=== PATIENT | male | born 1980 | race Caucasian/White ===

== ENCOUNTER 2022-12-24 01:56 | Observation (INO) ==
[2022-12-24] MEDS ORDERED: XYLOCAINE 1%/SOD BICARB 20 ML VIAL INFIL ONE (02:46)
--- NOTE | 2022-12-24 02:56 | Emergency Department Note ---
ED Provider Note History of Present Illness Chief Complaint: Fall Stated Complaint: FELL AND HIT BACK OF HEAD Time Seen by Provider: 12/24/22 02:04 Source: patient Mode of arrival: ambulatory Limitations: no limitations This patient is a 42-year-old male who presents to the emergency department for evaluation of a fall and head injury. Patient states that he lost his balance while in his garage and fell, striking the back of his head. He states that he recently had some toes on his left foot amputated due to a prior trauma. Since the amputation he has had problems with his balance. He does admit to drinking some alcohol tonight. He denies any loss of consciousness fall. Tetanus vaccine up-to-date. He reports mild pain in the head. Home Medications Medication Instructions Recorded Confirmed Type cholecalciferol (vitamin D3) 50 2,000 unit PO DAILY 12/24/22 12/24/22 History mcg (2,000 unit) capsule (Vitamin D3) duloxetine 30 mg capsule,delayed 30 mg PO DAILY 12/24/22 12/24/22 History release gabapentin 600 mg tablet 600 mg PO TID 12/24/22 12/24/22 History sildenafil (pulm.hypertension) 20 20 mg PO DAILY 12/24/22 12/24/22 History mg tablet Allergies Allergy/AdvReac Type Severity Reaction Status Date / Time No Known Allergies Allergy Verified 12/24/22 09:28 Past Med/Surg History Medical History Amputation of toe of left foot Depression History of traumatic brain injury HTN (hypertension) Peripheral neuropathy Surgical History S/P transmetatarsal amputation of foot Social History Smoking Status: Current some day smoker Second Hand Exposure: No; Do You Dip or Chew Tobacco: Yes; Tobacco Cessation Education Requested by Patient: No Hx Alcohol Use: Yes Hx Substance Use: No Preferred Language: Nepali Communication Ability: Effective Grant Coordinator Required: No Beliefs That Will Affect Care: None Current Living Situation: Alone Other Information That Helps Us Care for You: No Feels Safe at Home: No Is there a partner from a previous relationship who is making you feel unsafe now?: No Any Concerns about Your Family Situation: No Would You Like to Speak to Someone About Your Situation: No Safety Concerns: Feels Safe At This Time Assistive Devices: None Physical Exam Vital Signs Vital Signs - 24 hr 12/24/22 07:56 12/24/22 07:56 12/24/22 08:06 Pulse Rate 74 66 Pulse Rate [Finger] 72 Respiratory Rate 18 Respiratory Effort / Characteristics Non-Labored Respiratory Depth Normal Blood Pressure [Left Arm] 137/93 Blood Pressure Mean [Left Arm] 107 Pulse Oximetry 98 99 Oxygen Delivery Method Room Air Room Air VITALS: Vitals are noted on the nurse's note and reviewed by myself. GENERAL: This is a 42-year-old male, in no acute distress, well-developed well- nourished. SKIN: There is a 5 cm linear laceration to the posterior scalp. HEAD: Normocephalic atraumatic. EARS: External auditory canals clear, tympanic membranes pearly narayanan without erythema or effusion bilaterally. No hemotympanum. EYES: Pupils equal round and reactive to light and accommodation. Extraocular movements intact. NECK: Supple without nuchal rigidity. Cervical spine is nontender. HEART: Regular rate and rhythm without murmurs gallops or rubs. LUNGS: Clear to auscultation bilaterally without wheezes, rales or rhonchi. NEURO: Patient was alert and oriented to person place and time. Procedures Laceration Scalp laceration: Site: scalp Size (cm): 5 Description: linear Depth: simple, single layer Local Anesthetic: lidocaine 1% Amount of anesthesia used (mL): 8 Pre-repair: wound explored, irrigated extensively and deep structures intact Skin layer closed with: other (chrissy) Number of sutures: 9 Course Administered Medications Acetaminophen (Acetaminophen 325 Mg Tab) 650 mg PO Q4H PRN PRN Reason: pain/fever Stop: 01/23/23 12:29 Last Admin: 12/25/22 05:52 Dose: 650 mg Documented By: Admin: 12/24/22 20:41 Dose: 650 mg Documented By: CIERRA Gabapentin (Gabapentin 600 Mg Tab) 600 mg PO Q8H [facility] Stop: 12/25/22 22:01 Last Admin: 12/25/22 05:52 Dose: 600 mg Documented By: CIERRA Nicotine (Nicotine 21 Mg/24 Hr Tdsy) 21 mg TD QAM [facility] Stop: 01/23/23 12:29 Last Admin: 12/24/22 13:46 Dose: 21 mg Documented By: SUGEY Discontinued Medications Gabapentin (Gabapentin 600 Mg Tab) 600 mg PO Q6H [facility] Stop: 12/24/22 22:01 Last Admin: 12/24/22 22:04 Dose: 600 mg Documented By: Admin: 12/24/22 16:00 Dose: 600 mg Documented By: SUGEY Gabapentin (Gabapentin 600 Mg Tab) 1,200 mg PO NOW ONE Stop: 12/24/22 12:31 Last Admin: 12/24/22 13:49 Dose: 1,200 mg Documented By: SUGEY Thiamine HCl 100 mg/ Folic (Acid 1 mg/ Sodium Chloride) 1,001.2 mls @ 500 mls/hr IV .Q2H1M STA; Protocol Stop: 12/24/22 11:20 Last Infusion: 12/24/22 12:51 Dose: 0 mls/hr Documented By: Admin: 12/24/22 10:00 Dose: 500 mls/hr Documented By: DINORA Lidocaine HCl (Xylocaine 1%/Sod Bicarb 20 Ml Vial) 20 ml INFIL NOW ONE Stop: 12/24/22 02:47 Last Admin: 12/24/22 04:25 Dose: 20 ml Documented By: STONE Multivitamins/Minerals (Cerovite Adv Formula Tab) 1 tab PO ONE STA Stop: 12/24/22 09:21 Last Admin: 12/24/22 10:00 Dose: 1 tab Documented By: DINORA Medical Decision Making Differential Diagnosis Concussion, contusion, fracture, subdural hematoma, epidural hematoma, intraparenchymal hemorrhage, as well as other pathologies. Home Medications was personally reviewed by me Laboratory Data 12/24/22 07:55 12/24/22 07:55 Lab Results 12/24/22 12/24/22 12/24/22 Range/Units 07:55 07:55 07:55 WBC 5.83 (4.8-10.8) K/ul RBC 5.18 (4.70-6.10) M/uL Hgb 17.0 (14.0-18.0) g/dl Hct 47.1 (42.0-52.0) % MCV 90.9 (80.0-100.0) fL MCH 32.8 (25.0-34.0) pg MCHC 36.1 H (32.0-36.0) g/dL RDW Std Deviation 39.9 (36.4-46.3) fL RDW Coeff of Jasmin 12.0 (11.5-14.5) % Plt Count 336 (130-400) K/uL MPV 8.7 L (9.4-12.4) fL Immature Gran % (Auto) 0.3 % Neut % (Auto) 62.4 % Lymph % (Auto) 29.0 % Mcmullen % (Auto) 6.9 % Eos % (Auto) 0.5 % Baso % (Auto) 0.9 % Neut # (Auto) 3.64 (1.40-6.50) K/uL Lymph # (Auto) 1.69 (1.2-3.4) K/uL Mcmullen # (Auto) 0.40 (0.11-0.59) K/uL Eos # (Auto) 0.03 (0-0.50) K/uL Baso # (Auto) 0.05 (0-0.2) K/uL Immature Gran # (Auto) 0.02 (0.01-0.20) K/uL PT 10.2 (9.0-12.0) Seconds INR 0.9 (0.9-1.1) APTT 26.2 (21.0-31.0) Seconds PTT Ratio 0.9 Sodium 141 (136-145) mmol/L Potassium 4.3 (3.5-5.1) mmol/L Chloride 106 (98-107) mmol/L Carbon Dioxide 27 (21-32) mmol/L Anion Gap 8 (3-11) BUN 9 (6-23) mg/dl Creatinine 0.85 (0.6-1.4) mg/dl Est Cr Clr Drug Dosing 115.5 ml/min Est GFR ( Amer) 123.7 ml/min Est GFR (Non-Af Amer) 106.7 ml/min BUN/Creatinine Ratio 10.6 (10-20) Glucose 92 (70-99(Fasting)) mg/dl Calcium 9.9 (8.6-10.3) mg/dl Total Bilirubin 0.5 (0.2-1.0) mg/dl AST 20 (13-39) U/L ALT 22 (7-52) U/L Alkaline Phosphatase 86 (34-104) U/L Total Protein 8.5 H (6.0-8.3) gm/dl Albumin 5.1 H (3.4-5.0) gm/dl Globulin 3.4 (2.5-4.0) gm/dl Albumin/Globulin Ratio 1.5 (0.9-2) Ethyl Alcohol mg/dL (<10.0) mg/dl 12/24/22 Range/Units 07:55 WBC (4.8-10.8) K/ul RBC (4.70-6.10) M/uL Hgb (14.0-18.0) g/dl Hct (42.0-52.0) % MCV (80.0-100.0) fL MCH (25.0-34.0) pg MCHC (32.0-36.0) g/dL RDW Std Deviation (36.4-46.3) fL RDW Coeff of Jasmin (11.5-14.5) % Plt Count (130-400) K/uL MPV (9.4-12.4) fL Immature Gran % (Auto) % Neut % (Auto) % Lymph % (Auto) % Mcmullen % (Auto) % Eos % (Auto) % Baso % (Auto) % Neut # (Auto) (1.40-6.50) K/uL Lymph # (Auto) (1.2-3.4) K/uL Mcmullen # (Auto) (0.11-0.59) K/uL Eos # (Auto) (0-0.50) K/uL Baso # (Auto) (0-0.2) K/uL Immature Gran # (Auto) (0.01-0.20) K/uL PT (9.0-12.0) Seconds INR (0.9-1.1) APTT (21.0-31.0) Seconds PTT Ratio Sodium (136-145) mmol/L Potassium (3.5-5.1) mmol/L Chloride (98-107) mmol/L Carbon Dioxide (21-32) mmol/L Anion Gap (3-11) BUN (6-23) mg/dl Creatinine (0.6-1.4) mg/dl Est Cr Clr Drug Dosing ml/min Est GFR ( Amer) ml/min Est GFR (Non-Af Amer) ml/min BUN/Creatinine Ratio (10-20) Glucose (70-99(Fasting)) mg/dl Calcium (8.6-10.3) mg/dl Total Bilirubin (0.2-1.0) mg/dl AST (13-39) U/L ALT (7-52) U/L Alkaline Phosphatase (34-104) U/L Total Protein (6.0-8.3) gm/dl Albumin (3.4-5.0) gm/dl Globulin (2.5-4.0) gm/dl Albumin/Globulin Ratio (0.9-2) Ethyl Alcohol mg/dL 130.6 H (<10.0) mg/dl Imaging Data Radiologist's Impression: Cervical Spine CT 12/24/22 02:45 CT SCAN OF THE CERVICAL SPINE CLINICAL HISTORY: Fall. Head injury. COMPARISON STUDY: No priors. TECHNIQUE: CT scan of the cervical spine is performed from the skull base to the upper thoracic spine. Images are reviewed in the axial, sagittal, and coronal planes. IV contrast was not administered for this examination. A dose lowering technique was utilized adhering to the principles of ALARA. FINDINGS: Skeletal structures: The skeletal structures are well mineralized. There is no evidence of fracture or subluxation involving the cervical spine. Vertebral body height and alignment are maintained. Tiny anterior osteophytes are seen throughout. The odontoid process and lateral masses are intact. The atlantoaxial articulation is preserved. The spinous processes appear intact. Postsurgical change is noted in the right clavicle. Intervertebral discs: There is mild multilevel degenerative disc space narrowing, greatest at C6-C7. Central canal: Posterior disc osteophyte complexes at C5-C6 and C6-C7 may contribute to acquired compromise of the central canal. Soft tissues: The prevertebral and paraspinous soft tissues are within normal limits. Calvarium: The visualized calvarium at the skull base appears intact. Brain parenchyma: Partially visualized brain parenchyma at the skull base is within normal limits. Sinuses and mastoids: The visualized paranasal sinuses are clear. The mastoid air cells are well pneumatized. Lung apices: Clear as visualized. IMPRESSION: There is no evidence of fracture or subluxation involving the cervical spine. ACT 112: Negative or not required by law. Electronically signed by: Rico López M.D. 12/24/2022 7:[address] 12/24/22 02:45 CT SCAN OF THE BRAIN WITHOUT IV CONTRAST CLINICAL HISTORY: Fall. Head injury. COMPARISON STUDY: No priors. TECHNIQUE: Unenhanced axial CT scan of the brain is performed from the vertex to the skull base. A dose lowering technique was utilized adhering to the principles of ALARA. FINDINGS: Brain parenchyma: There is trace subdural hemorrhage along the right frontal convexity and along the midline falx. No parenchymal hematoma is identified. There is no mass effect or evidence of acute territorial ischemia by CT criteria. Narayanan-white matter differentiation is preserved. No extra-axial fluid collection is seen. Ventricles, sulci, cisterns: Normal in configuration. Intracranial vasculature: The visualized intracranial vasculature at the skull base is normal in appearance. Calvarium: There is no depressed calvarial fracture. Soft tissues: There is posterior scalp contusion. Sinuses and mastoids: The visualized paranasal sinuses are clear. The mastoid air cells are well pneumatized. Orbits: The bony orbits are grossly intact. IMPRESSION: 1. There is trace subdural hemorrhage along the right frontal convexity and along the midline falx. 2. No additional foci of hemorrhage are identified. There is no mass effect or evidence of acute territorial ischemia by CT criteria. 3. Posterior scalp injury. No depressed calvarial fracture is identified. ACT 112: Negative or not required by law. Electronically signed by: Rico López M.D. 12/24/2022 7:22 AM Head Trauma GCS Score: 15 MDM Narrative This patient is a 42-year-old male who presents to the emergency department for evaluation of a head injury. Patient sustained a mechanical fall. He does admit to drinking some alcohol tonight. CT of the head/C-spine were performed. Scalp laceration was repaired as noted in the procedure section. Patient tolerated this well. Wound care instructions were discussed with the patient. At the time of shift change, the CT scan had not been read by radiology. At this time, patient's care was signed out to Mikie Cook PA-C pending CT read and patient disposition. Impression Closed head injury, Laceration of scalp Discharge Plan Visit Data Chief Complaint: Fall Stated Complaint: FELL AND HIT BACK OF HEAD ED Provider: Beth Lowe ED Midlevel Provider: Bamat,Mikie W Discharge Problem: Closed head injury, Laceration of scalp Patient Disposition: Admitted As Inpatient Condition: Good Discharge Instructions Interventions: ED Discharge Assessment Last Done: 12/24/22 15:03
--- NOTE | 2022-12-24 07:24 | CT Scan Report ---
CT SCAN OF THE BRAIN WITHOUT IV CONTRAST CLINICAL HISTORY: Fall. Head injury. COMPARISON STUDY: No priors. TECHNIQUE: Unenhanced axial CT scan of the brain is performed from the vertex to the skull base. A d ose lowering technique was utilized adhering to the principles of ALARA. FINDINGS: Brain parenchyma: There is trace subdural hemorrhage along the right frontal convexity and along the midline falx. No parenchymal hematoma is identified. There is no mass effect or evidence of acute ter ritorial ischemia by CT criteria. Narayanan-white matter differentiation is preserved. No extra-axial flui d collection is seen. Ventricles, sulci, cisterns: Normal in configuration. Intracranial vasculature: The visualized intracranial vasculature at the skull base is normal in appe arance. Calvarium: There is no depressed calvarial fracture. Soft tissues: There is posterior scalp contusion. Sinuses and mastoids: The visualized paranasal sinuses are clear. The mastoid air cells are well pneu matized. Orbits: The bony orbits are grossly intact. IMPRESSION: 1. There is trace subdural hemorrhage along the right frontal convexity and along the midline falx. 2. No additional foci of hemorrhage are identified. There is no mass effect or evidence of acute terr itorial ischemia by CT criteria. 3. Posterior scalp injury. No depressed calvarial fracture is identified. ACT 112: Negative or not required by law. Electronically signed by: Rico López M.D. 12/24/2022 7:22 AM
--- NOTE | 2022-12-24 07:52 | CT Scan Report ---
CT SCAN OF THE CERVICAL SPINE CLINICAL HISTORY: Fall. Head injury. COMPARISON STUDY: No priors. TECHNIQUE: CT scan of the cervical spine is performed from the skull base to the upper thoracic spine . Images are reviewed in the axial, sagittal, and coronal planes. IV contrast was not administered fo r this examination. A dose lowering technique was utilized adhering to the principles of ALARA. FINDINGS: Skeletal structures: The skeletal structures are well mineralized. There is no evidence of fracture o r subluxation involving the cervical spine. Vertebral body height and alignment are maintained. Tiny anterior osteophytes are seen throughout. The odontoid process and lateral masses are intact. The at lantoaxial articulation is preserved. The spinous processes appear intact. Postsurgical change is not ed in the right clavicle. Intervertebral discs: There is mild multilevel degenerative disc space narrowing, greatest at C6-C7. Central canal: Posterior disc osteophyte complexes at C5-C6 and C6-C7 may contribute to acquired comp romise of the central canal. Soft tissues: The prevertebral and paraspinous soft tissues are within normal limits. Calvarium: The visualized calvarium at the skull base appears intact. Brain parenchyma: Partially visualized brain parenchyma at the skull base is within normal limits. Sinuses and mastoids: The visualized paranasal sinuses are clear. The mastoid air cells are well pneu matized. Lung apices: Clear as visualized. IMPRESSION: There is no evidence of fracture or subluxation involving the cervical spine. ACT 112: Negative or not required by law. Electronically signed by: Rico López M.D. 12/24/2022 7:50 AM
--- NOTE | 2022-12-24 07:59 | Emergency Department Note ---
ED Visit Note Patient case signed out to me at 0700 hours on 12/24/2022 by Charmaine Drummond PA-C. Patient was pending CT read by radiology of the head and C-spine. Patient resting comfortably in the examination room. Vital signs stable. Patient presents status post ground-level fall with an occipital laceration which was repaired by CALOS Drummond. CT scans resulted and I did inform the patient on the findings. There is a trace subdural hemorrhage. With this finding in the setting of mechanical fall it is felt discussion with trauma center would be reasonable. The patient recently had surgery on his foot with the [facility]. At this time consideration for transfer/discussion of case with [facility] is felt to be the most reasonable destination. I spoke with [facility] ED, Dr. Amaro. We reviewed the case. He will reach out to the neurosurgery specialty service to review the imaging that was sent via [employer] from our radiology department. At 0853 I did receive a phone call back from Dr. Amaro. He indicated that he reviewed the case with Dr. Bonilla (Neurosurgery) that also reviewed the imaging. Repeat head CT at the 6-hour jinny is indicated. Transfer is not felt to be needed at this time. Patient clinically is well-appearing and nontoxic. No neurodeficits. GCS 15. Laboratory studies here reveal no leukocytosis or concerning anemia. Alcohol is detected. We will proceed with medical admission here, repeat head CT and repeat neurological assessment. It was noted that Dr. Bonilla is available for any questions. I reviewed options with the patient. I do believe that medical admission here is reasonable. I did speak to our hospitalist, Dr. Mcallister. He notes he will come evaluate the patient for admission and will order the repeat head CT. He did recommend a banana bag noting the patient's alcohol ingestion and presentation. This was ordered. Please refer to further documentation regarding his stay. GCS: 15. .
[2022-12-24 08:08] LABS: Basophils # (auto) 0.05 K/uL (0-0.2); Basophils % (auto) 0.9 %; Eosinophils # (auto) 0.03 K/uL (0-0.50); Eosinophils % (auto) 0.5 %; Hematocrit (blood only) 47.1 % (42.0-52.0); Immature Granulocytes # (auto) 0.02 K/uL (0.01-0.20); Immature Granulocytes % (auto) 0.3 %; Lymphocytes # (auto) 1.69 K/uL (1.2-3.4); Mean Corpuscular Hemoglobin 32.8 pg (25.0-34.0); Mean Corpuscular Hgb Conc 36.1 g/dL (32.0-36.0); Mean Corpuscular Volume 90.9 fL (80.0-100.0); Mean Platelet Volume 8.7 fL (9.4-12.4); Monocytes % (auto) 6.9 %; Neutrophils # (auto) 3.64 K/uL (1.40-6.50); Neutrophils % (auto) 62.4 %; Platelet Count 336 K/uL (130-400); RDW Standard Deviation 39.9 fL (36.4-46.3); Red Blood Count 5.18 M/uL (4.70-6.10); White Blood Count 5.83 K/ul (4.8-10.8)
[2022-12-24 08:24] LABS: Albumin Globulin Ratio 1.5 (0.9-2); Albumin Level 5.1 gm/dl (3.4-5.0); BUN Creatinine Ratio 10.6 (10-20); Bilirubin,Total 0.5 mg/dl (0.2-1.0); Calcium 9.9 mg/dl (8.6-10.3); Creatinine Clr Calc Pharmacy 115.5 ml/min; Est GFR (African American) 123.7 ml/min; Est GFR (Non-African American) 106.7 ml/min; Globulin 3.4 gm/dl (2.5-4.0); Potassium 4.3 mmol/L (3.5-5.1); Total Protein 8.5 gm/dl (6.0-8.3)
[2022-12-24 08:59] LABS: INR 0.9 (0.9-1.1); Partial Thromboplastin Ratio 0.9; Partial Thromboplastin Time 26.2 Seconds (21.0-31.0); Prothrombin Time 10.2 Seconds (9.0-12.0)
[2022-12-24] MEDS ORDERED: THIAMINE HCL 100 MG, FOLIC ACID 1 MG in SODIUM CHLORIDE 0.9% 1000ML 1,000 ML IV STA (09:20)
[2022-12-24] MEDS ORDERED: CEROVITE ADV FORMULA TAB PO STA (09:20)
--- NOTE | 2022-12-24 10:32 | History & Physical Report ---
Date of Service December 24, 2022 Assessment & Plan (1) Traumatic subdural hemorrhage: (2) Alcoholism: (3) Laceration of scalp: (4) Wound of foot: (5) S/P transmetatarsal amputation of foot: (6) Peripheral neuropathy: (7) Depression: (8) HTN (hypertension): Plan Traumatic SDH with scalp laceration: -CT head: There is trace subdural hemorrhage along the right frontal convexity and along the midline falx. -ER provider did speak to ER doc at [facility] and neurosurgeon (Dr. Bonilla) -- Recommendation: repeat CT head in 6 hours if no worsening then observe overnight (recommendation on [facility]) -pts neuro exam is normal -VSS -will repeat CT head in 6 hours -pt does not take any AC or Aspirin - Occipital scalp laceration repaired with 9 chrissy Alcoholism: -elevated alcohol level - but pt does not have any s/s of intoxication -last drink was 11 pm yesterday -will start pt on alcohol withdrawal protocol with gabapentin load ---- thus will hold his home gabapentin 600mg TID -pt not interested in doing rehab hx of S/p L foot TMA with small foot wound: -no sign of infection -pt does follow up with podiatry for wound care ([facility]) -wound care consult HTN: -bp wnl - per pt he does not take amlodipine - if BP starts to elevate then consider starting amlodipine Peripheral neuropathy/Depression/Tobacco use: -will hold home gabapentin while doing gabapentin ETOH withdrawal protocol -will continue Cymbalta -will do nicotine patch Diet: heart healthy DVT PPx:SCD Code Status:FULL CODE Emergency Contact: sneha Pathak [phone] History of Present Illness Chief Complaint: scalp laceration Primary Care Provider: Annemarie Mcclendon MD Pt is a 42 y/o M with hx of HTN, 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 Per pt around 1am pt was going to the kitchen, tripped and hit his head on a Radiator. Denied any LOC or syncope. Came to the ER for laceration repair and found to have trace SDH. Last alcohol intake was 11 pm yesterday. Per pt he drinks abt 3 beers/day. Denied any hx of alcohol withdrawal or seizure. Currently not interested in doing rehab. At bedside: pt complained of pain where he has chrissy placed (posterior scalp). Denied any n/V, vision problem, dizziness, hallucination, delusion, Cp, SOB. Per pt he does not take his amlodipine for HTN. Allergies Allergy/AdvReac Type Severity Reaction Status Date / Time No Known Allergies Allergy Verified 12/24/22 09:28 Home Medications Medication Instructions Recorded Confirmed Type cholecalciferol (vitamin D3) 50 2,000 unit PO DAILY 12/24/22 12/24/22 History mcg (2,000 unit) capsule (Vitamin D3) duloxetine 30 mg capsule,delayed 30 mg PO DAILY 12/24/22 12/24/22 History release gabapentin 600 mg tablet 600 mg PO TID 12/24/22 12/24/22 History sildenafil (pulm.hypertension) 20 20 mg PO DAILY 12/24/22 12/24/22 History mg tablet Past Med/Surg History Medical History Amputation of toe of left foot Depression History of traumatic brain injury HTN (hypertension) Peripheral neuropathy Surgical History S/P transmetatarsal amputation of foot Social History Smoking Status: Current every day smoker Preferred Language: Uzbek Feels Safe at Home: Yes Review of Systems Review of Systems: At least 10 Review of systems were reviewed and all negative except as indicated in HPI Physical Exam Physical Exam: General:. NAD, well developed, well nourished, average body habitus HEENT:.laceration of the posterior scalp repaired with chrissy, Normocephalic and atraumatic, Normal Conjunctiva, EOMI, Sclera is non-icteric Lungs:. No signs of respiratory distress, CTA, no wheezing or crackles Heart:. Normal S1, S2, no murmur Abdominal:. ND, Soft, NT MSK:.L foot TMA, small wound near the incision, no drainage or erythema Neuro: CN II-XII intact, normal motor strength, and sensation Psych:. AAOx3, normal affect Results & Data Results & Data Vital Signs (Past 12 Hours) Vital Signs Temp Pulse Pulse Resp BP BP Pulse Ox 12/24/22 10:02 64 16 127/88 98 12/24/22 08:06 66 12/24/22 07:56 72 18 137/93 99 12/24/22 07:56 74 98 12/24/22 03:30 84 20 135/88 96 12/24/22 05:46 68 18 117/75 97 12/24/22 01:59 36.6 C 77 18 131/91 98 O2 Del Method 12/24/22 10:02 Room Air 12/24/22 08:06 12/24/22 07:56 Room Air 12/24/22 07:56 Room Air 12/24/22 03:30 Room Air 12/24/22 05:46 Room Air 12/24/22 01:59 Room Air Laboratory Results Short CBC 12/24/22 Range/Units 07:55 WBC 5.83 (4.8-10.8) K/ul Hgb 17.0 (14.0-18.0) g/dl Hct 47.1 (42.0-52.0) % Plt Count 336 (130-400) K/uL BMP 12/24/22 07:55 Sodium 141 Potassium 4.3 Chloride 106 Carbon Dioxide 27 BUN 9 Creatinine 0.85 Glucose 92 Calcium 9.9 Liver Function 12/24/22 Range/Units 07:55 Total Bilirubin 0.5 (0.2-1.0) mg/dl AST 20 (13-39) U/L ALT 22 (7-52) U/L Alkaline Phosphatase 86 (34-104) U/L Albumin 5.1 H (3.4-5.0) gm/dl Diagnostic Findings Cervical Spine CT 12/24/22 02:45 CT SCAN OF THE CERVICAL SPINE CLINICAL HISTORY: Fall. Head injury. COMPARISON STUDY: No priors. TECHNIQUE: CT scan of the cervical spine is performed from the skull base to the upper thoracic spine. Images are reviewed in the axial, sagittal, and coronal planes. IV contrast was not administered for this examination. A dose lowering technique was utilized adhering to the principles of ALARA. FINDINGS: Skeletal structures: The skeletal structures are well mineralized. There is no evidence of fracture or subluxation involving the cervical spine. Vertebral body height and alignment are maintained. Tiny anterior osteophytes are seen throughout. The odontoid process and lateral masses are intact. The atlantoaxial articulation is preserved. The spinous processes appear intact. Postsurgical change is noted in the right clavicle. Intervertebral discs: There is mild multilevel degenerative disc space narrowing, greatest at C6-C7. Central canal: Posterior disc osteophyte complexes at C5-C6 and C6-C7 may contribute to acquired compromise of the central canal. Soft tissues: The prevertebral and paraspinous soft tissues are within normal limits. Calvarium: The visualized calvarium at the skull base appears intact. Brain parenchyma: Partially visualized brain parenchyma at the skull base is within normal limits. Sinuses and mastoids: The visualized paranasal sinuses are clear. The mastoid air cells are well pneumatized. Lung apices: Clear as visualized. IMPRESSION: There is no evidence of fracture or subluxation involving the cervical spine. ACT 112: Negative or not required by law. Electronically signed by: Rico López M.D. 12/24/2022 7:[address] 12/24/22 02:45 CT SCAN OF THE BRAIN WITHOUT IV CONTRAST CLINICAL HISTORY: Fall. Head injury. COMPARISON STUDY: No priors. TECHNIQUE: Unenhanced axial CT scan of the brain is performed from the vertex to the skull base. A dose lowering technique was utilized adhering to the principles of ALARA. FINDINGS: Brain parenchyma: There is trace subdural hemorrhage along the right frontal convexity and along the midline falx. No parenchymal hematoma is identified. There is no mass effect or evidence of acute territorial ischemia by CT criteria. Narayanan-white matter differentiation is preserved. No extra-axial fluid collection is seen. Ventricles, sulci, cisterns: Normal in configuration. Intracranial vasculature: The visualized intracranial vasculature at the skull base is normal in appearance. Calvarium: There is no depressed calvarial fracture. Soft tissues: There is posterior scalp contusion. Sinuses and mastoids: The visualized paranasal sinuses are clear. The mastoid air cells are well pneumatized. Orbits: The bony orbits are grossly intact. IMPRESSION: 1. There is trace subdural hemorrhage along the right frontal convexity and along the midline falx. 2. No additional foci of hemorrhage are identified. There is no mass effect or evidence of acute territorial ischemia by CT criteria. 3. Posterior scalp injury. No depressed calvarial fracture is identified. ACT 112: Negative or not required by law. Electronically signed by: Rico López M.D. 12/24/2022 7:22 AM Code Status & VTE Plan VTE Prophylaxis Plan VTE Prophylaxis will be ordered: Yes
[2022-12-24] MEDS ORDERED: GABAPENTIN 600 MG TAB PO ONE (12:30)
[2022-12-24] MEDS ORDERED: LORazepam 1 MG TAB PO PRN ×3 (12:30)
[2022-12-24] MEDS ORDERED: ONDANSETRON INJ 2 MG/ML 2 ML VIAL IV PRN (12:30)
[2022-12-24] MEDS ORDERED: GABAPENTIN 1200MG ALCOHOL WITHDRAWAL LOAD PO STA (12:30)
[2022-12-24] MEDS ORDERED: Ativan PO Alcohol Withdrawal--Active Protocol PO PRN (12:30)
[2022-12-24] MEDS: NICOTINE 21 MG/24 HR TDSY TD SCH (13:46)
[2022-12-24] MEDS: GABAPENTIN 600 MG TAB PO SCH ×2 (16:00→22:04)
--- NOTE | 2022-12-24 17:32 | CT Scan Report ---
CT SCAN OF THE BRAIN WITHOUT IV CONTRAST CLINICAL HISTORY: Follow-up subdural hemorrhage. COMPARISON STUDY: CT of the brain performed earlier the same day 12/24/2022. TECHNIQUE: Unenhanced axial CT scan of the brain is performed from the vertex to the skull base. A d ose lowering technique was utilized adhering to the principles of ALARA. FINDINGS: Brain parenchyma: Again seen is trace subdural hemorrhage along the right frontal convexity and along the midline falx. No parenchymal hematoma is identified. There is no mass effect or evidence of acut e territorial ischemia by CT criteria. Narayanan-white matter differentiation is preserved. No extra-axial fluid collection is seen. Ventricles, sulci, cisterns: Normal in configuration. Intracranial vasculature: The visualized intracranial vasculature at the skull base is normal in appe arance. Calvarium: There is no depressed calvarial fracture. Soft tissues: There is posterior scalp contusion. Skin clips are in place. Sinuses and mastoids: The visualized paranasal sinuses are clear. The mastoid air cells are well pneu matized. Orbits: The bony orbits are grossly intact. IMPRESSION: 1. There is unchanged appearance of trace subdural hemorrhage along the right frontal convexity and t he midline falx as compared to today's earlier examination. 2. No additional foci of hemorrhage are identified. There is no mass effect or evidence of acute terr itorial ischemia by CT criteria. ACT 112: Negative or not required by law. Electronically signed by: Rico López M.D. 12/24/2022 5:31 PM
[2022-12-24] MEDS: ACETAMINOPHEN 325 MG TAB PO PRN (20:41)
[2022-12-25] MEDS: ACETAMINOPHEN 325 MG TAB PO PRN ×3 (05:52→21:57)
[2022-12-25] MEDS: GABAPENTIN 600 MG TAB PO SCH ×3 (05:52→21:58)
[2022-12-25 07:24] LABS: Basophils # (auto) 0.04 K/uL (0-0.2); Basophils % (auto) 0.7 %; Eosinophils # (auto) 0.09 K/uL (0-0.50); Eosinophils % (auto) 1.7 %; Hematocrit (blood only) 42.7 % (42.0-52.0); Hemoglobin 15.3 g/dl (14.0-18.0); Immature Granulocytes # (auto) 0.02 K/uL (0.01-0.20); Immature Granulocytes % (auto) 0.4 %; Lymphocytes # (auto) 1.77 K/uL (1.2-3.4); Lymphocytes % (auto) 32.8 %; Mean Corpuscular Hemoglobin 32.7 pg (25.0-34.0); Mean Corpuscular Hgb Conc 35.8 g/dL (32.0-36.0); Mean Corpuscular Volume 91.2 fL (80.0-100.0); Mean Platelet Volume 8.5 fL (9.4-12.4); Monocytes # (auto) 0.59 K/uL (0.11-0.59); Monocytes % (auto) 10.9 %; Neutrophils # (auto) 2.89 K/uL (1.40-6.50); Neutrophils % (auto) 53.5 %; Platelet Count 265 K/uL (130-400); RDW Standard Deviation 39.8 fL (36.4-46.3); Red Blood Count 4.68 M/uL (4.70-6.10)
[2022-12-25 07:52] LABS: Albumin Globulin Ratio 1.6 (0.9-2); Albumin Level 4.1 gm/dl (3.4-5.0); BUN Creatinine Ratio 16.7 (10-20); Bilirubin,Total 0.7 mg/dl (0.2-1.0); Calcium 9.4 mg/dl (8.6-10.3); Chol HDL Ratio 2.9 (0-5); Creatinine Clr Calc Pharmacy 109.4 ml/min; Est GFR (African American) 120.8 ml/min; Est GFR (Non-African American) 104.2 ml/min; Globulin 2.6 gm/dl (2.5-4.0); Potassium 3.9 mmol/L (3.5-5.1); Total Protein 6.7 gm/dl (6.0-8.3)
[2022-12-25 08:17] LABS: Estimated Average Glucose 94 mg/dl; Hemoglobin A1C 4.9 % (4.5-5.6)
[2022-12-25] MEDS: CHOLECALCIFEROL 1,000 UNITS 25 MCG TAB PO SCH (08:19)
[2022-12-25] MEDS: THIAMINE HCL 100 MG TAB PO SCH (08:19)
[2022-12-25] MEDS: DULoxetine HCL 30 MG CAP PO SCH (08:19)
[2022-12-25] MEDS: FOLIC ACID 1 MG TAB PO SCH (08:19)
[2022-12-25] MEDS: NICOTINE 21 MG/24 HR TDSY TD SCH (08:20)
--- NOTE | 2022-12-25 12:22 | Hospitalist Progress Note ---
Date of Service December 25, 2022 Assessment & Plan (1) Traumatic subdural hemorrhage: (2) Alcoholism: (3) Laceration of scalp: (4) Wound of foot: (5) S/P transmetatarsal amputation of foot: (6) Peripheral neuropathy: (7) Depression: (8) HTN (hypertension): Plan Traumatic SDH with scalp laceration: due to mechanical fall -CT head: There is trace subdural hemorrhage along the right frontal convexity and along the midline falx. -ER provider did speak to ER doc at [facility] and neurosurgeon (Dr. Bonilla) -- Recommendation: repeat CT head in 6 hours if no worsening then observe overnight. Repeat CT head was stable. No new neuro sxns. -- Occipital scalp laceration repaired with 9 chrissy Alcoholism: -elevated alcohol level - but pt does not have any s/s of intoxication -last drink was 11 pm 2 days back -continue alcohol withdrawal protocol with gabapentin load ---- thus will hold his home gabapentin 600mg TID -pt not interested in doing rehab hx of S/p L foot TMA with small foot wound: -no sign of infection -pt [facility] -wound care consult Peripheral neuropathy/Depression/Tobacco use: -will hold home gabapentin while doing gabapentin ETOH withdrawal protocol -will continue Cymbalta -continue nicotine patch DVT PPx:SCD Dispo: Anticipate discharge later today or tomorrow Admission and Anticipated Discharge Date Admission Date: December 24, 2022 Subjective Patient was seen and examined at bedside. Denies any new issues. He feels fine. Complains of mild headache but no numbness, weakness, tingling or other neurological symptoms. No fever, chills. No chest pain or nausea or vomiting. Denies alcohol withdrawal symptoms Review of Systems Review of Systems: All systems reviewed & are unremarkable except as noted in Subjective Physical Exam Physical Exam: General: Lying comfortably in bed, not in distress, on room air. Laceration of post scalp with chrissy HEENT: EOMI, KANDI, MMM Chest: Clear breath sounds bilaterally, no wheezes or crackles CVS: Regular rate and rhythm, normal heart sounds, no murmur Abdomen: Soft, non tender, not distended, normal bowel sounds Neuro: Awake, alert, oriented, conversing well, non focal Extremities: No cyanosis, clubbing or edema MSK: Left foot transmetatarsal amputation, small wound near the incision- no signs of infection noted Results & Data Results & Data Vital Signs (Past 12 Hours) Vital Signs Temp Pulse Pulse Resp BP Pulse Ox O2 Del Method 12/25/22 11:01 36.6 C 71 18 118/78 95 Room Air 12/25/22 07:47 12/25/22 07:57 Room Air 12/25/22 07:55 36.6 C 59 L 18 113/74 98 Room Air 12/25/22 07:30 72 12/25/22 03:07 36.4 C L 71 16 109/72 96 Room Air O2 Del Method 12/25/22 11:01 12/25/22 07:47 Room Air 12/25/22 07:57 12/25/22 07:55 12/25/22 07:30 12/25/22 03:07 Laboratory Results Short CBC 12/25/22 Range/Units 07:03 WBC 5.40 (4.8-10.8) K/ul Hgb 15.3 (14.0-18.0) g/dl Hct 42.7 (42.0-52.0) % Plt Count 265 (130-400) K/uL BMP 12/25/22 07:03 Sodium 138 Potassium 3.9 Chloride 104 Carbon Dioxide 29 BUN 15 Creatinine 0.90 Glucose 88 Calcium 9.4 Liver Function 12/25/22 Range/Units 07:03 Total Bilirubin 0.7 (0.2-1.0) mg/dl AST 16 (13-39) U/L ALT 17 (7-52) U/L Alkaline Phosphatase 77 (34-104) U/L Albumin 4.1 (3.4-5.0) gm/dl Medications Administered Current Inpatient Medications Acetaminophen (Acetaminophen 325 Mg Tab) 650 mg PO Q4H PRN PRN Reason: pain/fever Stop: 01/23/23 12:29 Last Admin: 12/25/22 05:52 Dose: 650 mg Duloxetine HCl (Duloxetine Hcl 30 Mg Cap) 30 mg PO DAILY [facility] Stop: 01/24/23 08:59 Last Admin: 12/25/22 08:19 Dose: 30 mg Folic Acid (Folic Acid 1 Mg Tab) 1 mg PO QAM ARMANDO Stop: 01/24/23 08:59 Last Admin: 12/25/22 08:19 Dose: 1 mg Gabapentin (Gabapentin 600 Mg Tab) 600 mg PO Q24H [facility] Stop: 12/27/22 22:01 Gabapentin (Gabapentin 600 Mg Tab) 600 mg PO Q12H [facility] Stop: 12/26/22 22:01 Gabapentin (Gabapentin 600 Mg Tab) 600 mg PO Q8H [facility] Stop: 12/25/22 22:01 Last Admin: 12/25/22 05:52 Dose: 600 mg Lorazepam (Lorazepam 1 Mg Tab) 2 mg PO UD PRN; Protocol PRN Reason: EtOH Withdrawal AWSS Score 8,9 Stop: 01/23/23 12:29 Lorazepam (Lorazepam 1 Mg Tab) 3 mg PO ONCE PRN; Protocol PRN Reason: EtOH Withdrawal AWSS Score 10 & above Lorazepam (Lorazepam 1 Mg Tab) 1 mg PO UD PRN; Protocol PRN Reason: EtOH Withdrawal AWSS Score 6,7 Stop: 01/23/23 12:29 Miscellaneous (Remove Nicoderm Patch) 1 each N/A DAILY@[id number] [facility] Stop: 01/24/23 08:58 Last Admin: 12/25/22 08:20 Dose: 1 each Nicotine (Nicotine 21 Mg/24 Hr Tdsy) 21 mg TD QAM [facility] Stop: 01/23/23 12:29 Last Admin: 12/25/22 08:20 Dose: 21 mg Ondansetron HCl (Ondansetron Inj 2 Mg/Ml 2 Ml Vial) 4 mg IV Q6H PRN PRN Reason: Nausea Stop: 01/23/23 12:29 Thiamine HCl (Thiamine Hcl 100 Mg Tab) 100 mg PO QAM [facility] Stop: 01/24/23 08:59 Last Admin: 12/25/22 08:19 Dose: 100 mg Vitamin D (Cholecalciferol 1,000 Units 25 Mcg Tab) 2,000 units PO DAILY [facility] Stop: 01/24/23 08:59 Last Admin: 12/25/22 08:19 Dose: 2,000 units
--- NOTE | 2022-12-25 19:54 | CT Scan Report ---
CT SCAN OF THE BRAIN WITHOUT IV CONTRAST CLINICAL HISTORY: Headache. Follow-up subdural hemorrhage. COMPARISON STUDY: CT scans of the brain dated 12/24/2022. TECHNIQUE: Unenhanced axial CT scan of the brain is performed from the vertex to the skull base. A d ose lowering technique was utilized adhering to the principles of ALARA. FINDINGS: Brain parenchyma: There is trace residual subdural hemorrhage along the midline falx. This appears to have decreased from yesterday. Trace of subdural blood along the right frontal convexity has almost completely resolved. No parenchymal hematoma is identified. There is no mass effect or evidence of ac grayling territorial ischemia by CT criteria. Narayanan-white matter differentiation is preserved. No extra-axi al fluid collection is seen. Ventricles, sulci, cisterns: Normal in configuration. Intracranial vasculature: There is moderate atherosclerotic calcification of the cavernous carotid an d vertebral arteries. Calvarium: There is no depressed calvarial fracture. Soft tissues: There is posterior scalp contusion. Skin clips are in place. Sinuses and mastoids: The visualized paranasal sinuses are clear. The mastoid air cells are well pneu matized. Orbits: The bony orbits are grossly intact. IMPRESSION: 1. There is trace residual subdural hemorrhage along the right frontal convexity and along the midlin e falx. This has decreased from yesterday. 2. No new focus of hemorrhage is identified. There is no mass effect or evidence of acute territorial ischemia by CT criteria. ACT 112: Negative or not required by law. Electronically signed by: Rico López M.D. 12/25/2022 7:52 PM
[2022-12-26 07:19] LABS: Hemoglobin 15.1 g/dl (14.0-18.0); Mean Corpuscular Hemoglobin 32.3 pg (25.0-34.0); Mean Corpuscular Volume 89.7 fL (80.0-100.0); Mean Platelet Volume 8.9 fL (9.4-12.4); Platelet Count 277 K/uL (130-400); RDW Coefficient of Variation 11.9 % (11.5-14.5); RDW Standard Deviation 38.7 fL (36.4-46.3); Red Blood Count 4.68 M/uL (4.70-6.10); White Blood Count 5.72 K/ul (4.8-10.8)
[2022-12-26 07:42] LABS: BUN Creatinine Ratio 13.1 (10-20); Calcium 9.6 mg/dl (8.6-10.3); Creatinine Clr Calc Pharmacy 99.4 ml/min; Est GFR (African American) 107.7 ml/min; Est GFR (Non-African American) 92.9 ml/min; Magnesium 1.8 mg/dl (1.7-2.4); Potassium 4.3 mmol/L (3.5-5.1)
[2022-12-26] MEDS: FOLIC ACID 1 MG TAB PO SCH (08:08)
[2022-12-26] MEDS: CHOLECALCIFEROL 1,000 UNITS 25 MCG TAB PO SCH (08:08)
[2022-12-26] MEDS: NICOTINE 21 MG/24 HR TDSY TD SCH (08:09)
[2022-12-26] MEDS: DULoxetine HCL 30 MG CAP PO SCH (08:09)
[2022-12-26] MEDS: THIAMINE HCL 100 MG TAB PO SCH (08:09)
[2022-12-26] MEDS: ACETAMINOPHEN 325 MG TAB PO PRN (08:13)
[2022-12-26] MEDS ORDERED: GABAPENTIN 600 MG TAB PO SCH (10:00)
--- NOTE | 2022-12-26 12:17 | XRay Report ---
XR ribs LT min 2V w CXR1V CLINICAL HISTORY: Left-sided rib pain following fall. Evaluate for fracture. COMPARISON: None FINDINGS: There is no pneumothorax or pleural effusion. No airspace opacities are present. Cardiac s ize is normal. Mediastinal contours are normal. A right clavicular internal fixation is incidentally noted. There is subtle cortical irregularity of the anterior left 10th and 11th ribs. IMPRESSION: No pneumothorax. Possible acute nondisplaced fractures of the anterior left 10th and 11th ribs. ACT 112: Negative or not required by law. Electronically signed by: Bharathi Guzman M.D. 12/26/2022 12:16 PM
--- NOTE | 2022-12-26 13:58 | Discharge Summary ---
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 Per pt around 1am pt was going to the kitchen, tripped and hit his head on a Radiator. Denied any LOC or syncope. Came to the ER for laceration repair and found to have trace SDH. Last alcohol intake was 11 pm yesterday. Per pt he drinks abt 3 beers/day. Denied any hx of alcohol withdrawal or seizure. Currently not interested in do ing rehab. At bedside: pt complained of pain where he has chrissy placed (posterior scalp). Denied any n/V, vision problem, dizziness, hallucination, delusion, Cp, SOB. Per pt he does not take his amlodipine for HTN. Admission Exam Per Admitting Provider General:.NAD, well developed, well nourished, average body habitus HEENT:.laceration of the posterior scalp repaired with chrissy,Normocephalic and atraumatic, Normal Conjunctiva, EOMI, Sclera is non-icteric Lungs:.No signs of respiratory distress, CTA, no wheezing or crackles Heart:.Normal S1, S2, no murmur Abdominal:.ND, Soft, NT MSK:.L foot TMA, small wound near the incision, no drainage or erythema Neuro: CN II-XII intact, normal motor strength, and sensation Psych:.AAOx3, normal affect Principal Diagnosis Fall with traumatic SDH Discharge Exam General: Lying comfortably in bed, not in distress, on room air. Laceration of post scalp with chrissy HEENT: EOMI, KANDI, MMM Chest: Clear breath sounds bilaterally, no wheezes or crackles CVS: Regular rate and rhythm, normal heart sounds, no murmur Abdomen: Soft, non tender, not distended, normal bowel sounds Neuro: Awake, alert, oriented, conversing well, non focal Extremities: No cyanosis, clubbing or edema MSK: Left foot transmetatarsal amputation, no active wound or infection noted Discharge Data Allergies Allergy/AdvReac Type Severity Reaction Status Date / Time No Known Allergies Allergy Verified 12/24/22 09:28 Consultations 06/17/23 09:20 ED Decision to Admit Stat Ordered Studies 12/24/22 02:45 CT cervical spine wo con Stat CT head/brain wo con Stat 12/24/22 15:00 CT head/brain wo con Routine 12/25/22 16:59 CT head/brain wo con Routine Laboratory Results WBC 5.72 K/ul (4.8-10.8) 12/26/22 06:41 RBC 4.68 M/uL (4.70-6.10) L 12/26/22 06:41 Hgb 15.1 g/dl (14.0-18.0) 12/26/22 06:41 Hct 42.0 % (42.0-52.0) 12/26/22 06:41 MCV 89.7 fL (80.0-100.0) 12/26/22 06:41 MCH 32.3 pg (25.0-34.0) 12/26/22 06:41 MCHC 36.0 g/dL (32.0-36.0) 12/26/22 06:41 RDW Std Deviation 38.7 fL (36.4-46.3) 12/26/22 06:41 RDW Coeff of Jasmin 11.9 % (11.5-14.5) 12/26/22 06:41 Plt Count 277 K/uL (130-400) 12/26/22 06:41 MPV 8.9 fL (9.4-12.4) L 12/26/22 06:41 Immature Gran % (Auto) 0.4 % 12/25/22 07:03 Neut % (Auto) 53.5 % 12/25/22 07:03 Lymph % (Auto) 32.8 % 12/25/22 07:03 [place] % (Auto) 10.9 % 12/25/22 07:03 Eos % (Auto) 1.7 % 12/25/22 07:03 Baso % (Auto) 0.7 % 12/25/22 07:03 Neut # (Auto) 2.89 K/uL (1.40-6.50) 12/25/22 07:03 Lymph # (Auto) 1.77 K/uL (1.2-3.4) 12/25/22 07:03 [place] # (Auto) 0.59 K/uL (0.11-0.59) 12/25/22 07:03 Eos # (Auto) 0.09 K/uL (0-0.50) 12/25/22 07:03 Baso # (Auto) 0.04 K/uL (0-0.2) 12/25/22 07:03 Immature Gran # (Auto) 0.02 K/uL (0.01-0.20) 12/25/22 07:03 PT 10.2 Seconds (9.0-12.0) 12/24/22 07:55 INR 0.9 (0.9-1.1) 12/24/22 07:55 APTT 26.2 Seconds (21.0-31.0) 12/24/22 07:55 PTT Ratio 0.9 12/24/22 07:55 Sodium 140 mmol/L (136-145) 12/26/22 06:41 Potassium 4.3 mmol/L (3.5-5.1) 12/26/22 06:41 Chloride 104 mmol/L (98-107) 12/26/22 06:41 Carbon Dioxide 31 mmol/L (21-32) 12/26/22 06:41 Anion Gap 5 (3-11) 12/26/22 06:41 BUN 13 mg/dl (6-23) 12/26/22 06:41 Creatinine 0.99 mg/dl (0.6-1.4) 12/26/22 06:41 Est Cr Clr Drug Dosing 99.4 ml/min 12/26/22 06:41 Est GFR ( Amer) 107.7 ml/min 12/26/22 06:41 Est GFR (Non-Af Amer) 92.9 ml/min 12/26/22 06:41 BUN/Creatinine Ratio 13.1 (10-20) 12/26/22 06:41 Glucose 86 mg/dl (70-99(Fasting)) 12/26/22 06:41 Estimat Average Glucose 94 mg/dl 12/25/22 07:03 Hemoglobin A1c 4.9 % (4.5-5.6) 12/25/22 07:03 Calcium 9.6 mg/dl (8.6-10.3) 12/26/22 06:41 Phosphorus 3.0 mg/dl (2.5-4.9) 12/26/22 06:41 Magnesium 1.8 mg/dl (1.7-2.4) 12/26/22 06:41 Total Bilirubin 0.7 mg/dl (0.2-1.0) 12/25/22 07:03 AST 16 U/L (13-39) 12/25/22 07:03 ALT 17 U/L (7-52) 12/25/22 07:03 Alkaline Phosphatase 77 U/L (34-104) 12/25/22 07:03 Total Protein 6.7 gm/dl (6.0-8.3) D 12/25/22 07:03 Albumin 4.1 gm/dl (3.4-5.0) 12/25/22 07:03 Globulin 2.6 gm/dl (2.5-4.0) 12/25/22 07:03 Albumin/Globulin Ratio 1.6 (0.9-2) 12/25/22 07:03 Triglycerides 153 mg/dl (0-150) H 12/25/22 07:03 Cholesterol 181 mg/dl (0-200) 12/25/22 07:03 LDL Cholesterol, Calc 87 mg/dl 12/25/22 07:03 VLDL Cholesterol, Calc 31 mg/dl (0-30) H 12/25/22 07:03 HDL Cholesterol 63 mg/dl 12/25/22 07:03 Cholesterol/HDL Ratio 2.9 (0-5) 12/25/22 07:03 Ethyl Alcohol mg/dL 130.6 mg/dl (<10.0) H 12/24/22 07:55 SARS-CoV-2, RNA, NAAT NEGATIVE (NEGATIVE) 12/24/22 11:[address] 12/24/22 02:45 CT SCAN OF THE CERVICAL SPINE CLINICAL HISTORY: Fall. Head injury. COMPARISON STUDY: No priors. TECHNIQUE: CT scan of the cervical spine is performed from the skull base to the upper thoracic spine. Images are reviewed in the axial, sagittal, and coronal planes. IV contrast was not administered for this examination. A dose lowering technique was utilized adhering to the principles of ALARA. FINDINGS: Skeletal structures: The skeletal structures are well mineralized. There is no evidence of fracture or subluxation involving the cervical spine. Vertebral body height and alignment are maintained. Tiny anterior osteophytes are seen throughout. The odontoid process and lateral masses are intact. The atlantoaxial articulation is preserved. The spinous processes appear intact. Postsurgical change is noted in the right clavicle. Intervertebral discs: There is mild multilevel degenerative disc space narrowing, greatest at C6-C7. Central canal: Posterior disc osteophyte complexes at C5-C6 and C6-C7 may contribute to acquired compromise of the central canal. Soft tissues: The prevertebral and paraspinous soft tissues are within normal limits. Calvarium: The visualized calvarium at the skull base appears intact. Brain parenchyma: Partially visualized brain parenchyma at the skull base is within normal limits. Sinuses and mastoids: The visualized paranasal sinuses are clear. The mastoid air cells are well pneumatized. Lung apices: Clear as visualized. IMPRESSION: There is no evidence of fracture or subluxation involving the ce rvical spine. ACT 112: Negative or not required by law. Electronically signed by: Rico López M.D. 12/24/2022 7:[address] 12/25/22 16:59 CT SCAN OF THE BRAIN WITHOUT IV CONTRAST CLINICAL HISTORY: Headache. Follow-up subdural hemorrhage. COMPARISON STUDY: CT scans of the brain dated 12/24/2022. TECHNIQUE: Unenhanced axial CT scan of the brain is performed from the vertex to the skull base. A dose lowering technique was utilized adhering to the principles of ALARA. FINDINGS: Brain parenchyma: There is trace residual subdural hemorrhage along the midline falx. This appears to have decreased from yesterday. Trace of subdural blood along the right frontal convexity has almost completely resolved. No parenchymal hematoma is identified. There is no mass effect or evidence of acute territorial ischemia by CT criteria. Narayanan-white matter differentiation is preserved. No extra-axial fluid collection is seen. Ventricles, sulci, cisterns: Normal in configuration. Intracranial vasculature: There is moderate atherosclerotic calcification of the cavernous carotid and vertebral arteries. Calvarium: There is no depressed calvarial fracture. Soft tissues: There is posterior scalp contusion. Skin clips are in place. Sinuses and mastoids: The visualized paranasal sinuses are clear. The mastoid air cells are well pneumatized. Orbits: The bony orbits are grossly intact. IMPRESSION: 1. There is trace residual subdural hemorrhage along the right frontal convexity and along the midline falx. This has decreased from yesterday. 2. No new focus of hemorrhage is identified. There is no mass effect or evidence of acute territorial ischemia by CT criteria. ACT 112: Negative or not required by law. Electronically signed by: Rico López M.D. 12/25/2022 7:52 PM Ribs w/Chest X-Ray 12/26/22 09:39 XR ribs LT min 2V w [id number] CLINICAL HISTORY: Left-sided rib pain following fall. Evaluate for fracture. COMPARISON: None FINDINGS: There is no pneumothorax or pleural effusion. No airspace opacities are present. Cardiac size is normal. Mediastinal contours are normal. A right clavicular internal fixation is incidentally noted. There is subtle cortical irregularity of the anterior left 10th and 11th ribs. IMPRESSION: No pneumothorax. Possible acute nondisplaced fractures of the anterior left 10th and 11th ribs. ACT 112: Negative or not required by law. Electronically signed by: Bharathi Guzman M.D. 12/26/2022 12:16 PM Hospital Course (1) Traumatic subdural hemorrhage: (2) Laceration of scalp: (3) S/P transmetatarsal amputation of foot: (4) Peripheral neuropathy: (5) Depression: Plan Patient presented to the ED after mechanical fall sustaining scalp laceration and mild traumatic SDH. Laceration was stapled in the ED. ED physician spoke with neurosurgeon at [place] Dr Bonilla who recommended observation with repeat CT. Repeat CT 6 hours and 24 hours late shows stability and decreasing SDH. Per CT yesterday, there is trace residual subdural hemorrhage along the right frontal convexity and along the midline falx which has decreased from the day before. Patient does not have any new neurological symptoms. Has minor headache. Complained of intermittent left rib pain for which x-ray was done which showed possible acute nondisplaced fractures of anterior left 10th and 11th rib, no pneumothorax. Patient was seen by physical and Occupational Therapy who cleared him for discharge home. Patient denies heavy drinking or hard liquor and does not have any alcohol withdrawal symptoms. He is already on gabapentin at home. He is at his baseline status. He is comfortable and stable for discharge home. Recommended quitting drinking and smoking. Recommended as needed Tylenol for pain and headache. Recommend follow-up with PCP in 7 to 10 days for removal of chrissy. Total Time Total Time Spent Total Time Spent (In Minutes): 40 Discharge Plan Discharge Items Patient Disposition: Home - Self-Care Reason For Visit: ADMISSION Discharge Diagnosis: Fall with traumaatic SDH Condition on Discharge: Good Activity: Resume your previous activity Non-emergency contact: Primary Care Provider Call non-emergency contact if: you have any medication questions, your symptoms worsen and your pain is concerning for you Follow-up/Referrals: Annemarie Mcclendon MD [Primary Care Provider] - (Date & Time 12/30/2022 11:20 AM Provider Andrei Mcallister MD Department Family Medicine [facility] ) Diet: Regular Addtl Attending Provider Instructions: Continue all your meds as prescribed You can take tylenol as needed for headache and pain Recommend to quit drinking and smoking Follow up with family doctor in a week to get the chrissy out from the scalp laceration Pending Studies at Discharge: No Stand-Alone Forms: My [facility], Smoking Cessation Medications and DC Order Prescriptions: Continued gabapentin 600 mg tablet 600 mg PO TID duloxetine 30 mg capsule,delayed release(DR/EC) 30 mg PO DAILY sildenafil (pulm.hypertension) 20 mg tablet 20 mg PO DAILY cholecalciferol (vitamin D3) [Vitamin D3] 50 mcg (2,000 unit) capsule 2,000 unit PO DAILY Discharge Orders: Discharge Order (Routine); Ordered 12/26/22 Ordered By: Montez Holley Admission Data Admit Date/Time: 12/24/22 09:50 Attending Provider: Montez Holley Admit Provider: Andrei Mcallister Primary Care Provider: Annemarie Mcclendon Other Providers: Andrei Mcallister Other Interventions: Discharge Summary Assessment (RN) Last Done: 12/26/22 13:51
[2022-12-27] MEDS ORDERED: GABAPENTIN 600 MG TAB PO SCH (22:00)
== END 2022-12-26 17:13 | disposition home or self-care (01) | DRG 86 ==
LOC: ED 01:56 → 2N 09:50 → SUATTDRO 09:50 → INTOOBSV 09:50 → 2N 15:03